=== PATIENT | female | born 1995 | race Caucasian/White ===

== ENCOUNTER 2022-12-26 12:37 | Outpatient (REF) | payer OTHER, SELFPAY ==
[2022-12-26 14:01] LABS: MANUAL DIFF FLAG NO
[2022-12-26 14:12] LABS: Basophils Percent Auto 0.5 % (0-2); Eosinophils Absolute Auto 0.1 X10*3/uL (0.0-0.4); Eosinophils Percent Auto 1.4 % (0-4); Hematocrit 41.6 % (37.0-47.0); Hemoglobin 13.5 g/dl (12.0-16.0); Imm Gran Abs Auto 0.03 X10*3/uL (0.00-0.03); Imm Gran Pct Auto 0.5 % (0.0-0.4); Lymphocytes Absolute Auto 2.1 X10*3/uL (1.2-4.9); Lymphocytes Percent Auto 31.5 % (20-40); Mean Corpuscular HGB Conc 32.5 g/dl (31.0-35.0); Mean Corpuscular Hemoglobin 28.5 pg (27.0-33.0); Mean Corpuscular Volume 87.9 fL (80.0-98.0); Mean Platelet Volume 9.8 fL (9.4-12.3); Monocytes Absolute Auto 0.4 X10*3/uL (0.1-1.2); Monocytes Percent Auto 5.7 % (2-11); Neutrophils Absolute Auto 3.9 x10*3/uL (2.0-8.3); Neutrophils Percent Auto 60.4 % (45-73); Platelet Count 318 X10*3/uL (160-400); Red Blood Count 4.73 X10*6/uL (4.20-5.50); Red Cell Distribution Width 12.1 % (11.0-16.0); White Blood Count 6.5 X10*3/uL (4.8-10.8)
[2022-12-26 14:19] LABS: Appearance Urine Clear; Color Urine Yellow; Glucose Urine UA Negative (Negative); Leukocyte Esterase Urine Trace (Negative); Nitrite Urine Negative (Negative); PH 5.5 (5.0-9.0); Specific Gravity - Urine >= 1.030 (1.005-1.025); UMIC TRIGGER UACC YES; Urine Blood Negative (Negative); Urine Ketones Trace mg/dL (Negative); Urine Protein Negative (Neg-Trace)
[2022-12-26 14:23] LABS: Bacteria Urine 1+ (None Seen); Hyaline Casts Urine 0-2 /LPF (0-2); RBC Urine 0-2 /HPF (0-2); WBC Urine 0-5 /HPF (0-5)
[2022-12-26 14:41] LABS: Alanine Aminotransferase 8 U/L (0-31); Albumin Level 3.9 g/dL (3.5-5.0); Alkaline Phosphatase 70 U/L (39-117); Anion Gap 12 (12-20); Aspartate Amino Transferase 13 U/L (5-31); Bilirubin Total 0.2 mg/dL (0.0-1.0); Blood Urea Nitrogen 13 mg/dL (9-16); Calcium 9.8 mg/dL (8.4-10.2); Carbon Dioxide 22 mmol/L (22-29); Chloride 110 mmol/L (96-108); Cholesterol 217 mg/dL; Estimated Glomerular Filt Rate > 60; Glucose Fasting 88 mg/dL (60-99); HDL Cholesterol 51 mg/dL; LDL Cholesterol Calculated 151 mg/dl; Potassium 4.4 mmol/L (3.3-5.1); Sodium 140 mmol/L (135-145); Triglycerides 77 mg/dL
[2022-12-26 14:46] LABS: TSH reflex Free T4 0.93 uIU/mL (0.32-4.0)
== END 2022-12-26 12:38 | disposition home or self-care (01) ==
LOC: HO.WFDLDS 12:37
PROVIDERS: Visit Provider Nurse Practitioner Family
DX: Z00.00 Encounter for general adult medical examination without abnormal findings (principal); R53.83 Other fatigue
CPT/HCPCS: 36415; 80053; 80061; 81001; 84443; 85025

== ENCOUNTER 2023-08-21 15:17 | Outpatient (AMB) | payer OTHER, SELFPAY ==
--- NOTE | 2023-08-21 15:23 | A.OFFPC_ITS ---
Vital Signs 08/21/23 15:24 Height 4 ft 10 in Weight 167 lb BMI 34.9 BP 116/84 Blood Pressure Location Rt brachial Position Sitting Respiration 13 Pulse 86 Pulse Source Pulse Oximeter Temp 97.5 F Temp Source Temporal Artery Scan Pulse Oximetry (%) 99 Oxygen Delivery Method Room Air Intake Visit Reasons: Medication review Composition Professor Required: No Accompanied by: Mother Allergies doxycycline Allergy (Severe, Verified 08/21/23 15:46) Rash oxycodone [From OxyContin] Allergy (Severe, Verified 08/21/23 15:46) Fainting Medication List - Last Reconciled 08/21/23 by Agustina Guzman, SHAKEEL norethindrone-e.estradiol-iron 1.5 mg-30 mcg (21)/75 mg (7) (Nancy Fe 1.5/30 (28)) 1 tab PO DAILY sertraline 100 mg PO DAILY 30 days Tobacco use date assessed: 08/21/23 Dental Screening Dental Screen Date: 08/21/23 Did you have a dental visit in the last 12 months?: No Did you have a dental problem in the last 6 months where you did not have access to dental care?: No Was dental information given to patient?: Patient has dentist HPI HPI Comments History of Present Illness Details 28-year-old female, accompanied by her m other, presents for anxiety and depression follow-up Her last office visit was in November 2022 She admits to taking her medications as prescribed without adverse reactions She reports increased anxiety symptoms and on/off depression symptoms. She reports weekly psychotherapy over the phone Reports feeling tired all the time and weight gain. She reports history of c hronic fatigue. She has gained 14 lb since her last visit. She admits to making dietary changes and walking her dog daily. She reports eating disorder; she would eat large meals, and became hungry very quickly. She did not follow up to schedule an appointment to establish with a human resource analyst. She notes that no human resource analyst will fix my eating problem. Everyone in my family is fat to may be i'm destined to be fat. [facility] Medical History PTSD (post-traumatic stress disorder) Depression Anxiety GERD (gastroesophageal reflux disease) Sinusitis Asthma Surgical History Hx of wisdom tooth extraction Family History Mother Psychiatric problem High cholesterol Father Psychiatric problem Maternal Grandfather Psychiatric problem High cholesterol Colon cancer Maternal Grandmother Psychiatric problem Paternal Grandfather Psychiatric problem Paternal Grandmother Psychiatric problem Sister Psychiatric problem High cholesterol Brother Psychiatric problem High cholesterol Social History Housing: House Alcohol intake: never Patient Tobacco Use Status: Never used Tobacco e-Cigarette/Vaping Use: Never Used Second Hand Smoke Exposure: No service: No Current occupational status: disabled (applied for disability for PTSD) Current occupational exposures/hazards: No Cognitive needs: No Hearing needs: No Vision needs: No Questionnaire PHQ-9 Over the last 2 weeks, how often have you been bothered by any of the following problems? 1. Little interest or pleasure in doing things: several days 2. Feeling down, depressed, or hopeless: several days 3. Trouble falling or staying asleep, or sleeping too much: nearly every day 4. Feeling tired or having little energy: nearly every day 5. Poor appetite or overeating: nearly every day 6. Feeling bad about yourself - or that you are a failure or have let yourself or your family down: several days 7. Trouble concentrating on things, such as reading the newspaper or watching television: nearly every day 8. Moving or speaking so slowly that other people could have noticed. Or the opposite - being so fidgety or restless that you have been moving around a lot more than usual: not at all 9. Thoughts that you would be better off or of hurting yourself in some way: not at all Total score: 15 Depression Screening Interpretation: Positive Depression Screening Follow-up: Existing condition and In treatment Depression Screening Done: Yes 18043 - PHQ-9 Billing: Yes Source: Developed by Drs. Holden Fernandez, Elsy Ugarte, Haresh Gomez and colleagues, with an educational johnny from [employer]. Thrive Questionnaire Date Thrive assessed: 11/19/22 LEONIDES-7 AMB Questionnaire LEONIDES-7 Date LEONIEDS - 7 assessed: 08/21/23 Feeling nervous, anxious, or on edge: 3 = Nearly every day Not being able to stop or control worryin = Nearly every day Worrying too much about different things: 3 = Nearly every day Trouble relaxin = Nearly every day Being so restless that it is hard to sit still: 1 = Several days Becoming easily annoyed or irritable: 3 = Nearly every day Feeling afraid as if something awful might happen: 3 = Nearly every day Total LEONIDES-7 score (0-4 normal; 5-9 mild; 10-14 moderate; 15-21 severe): 19 Source: Developed by Drs. Holden Fernandez, Elsy Ugarte, Haresh Gomez and colleagues, with an educational johnny from [employer]. LEONIDES-7 Assessment Billing LEONIDES-7 Assessment Tool: LEONIDES-7 Assessment 35381 Review of Systems Const Details: Const Denies chills, Denies fatigue, Denies fever(s), Denies headache(s) and Denies weakness ENT Denies dizziness and Denies headache(s) Card Denies chest pain, Denies lightheadedness, Denies dyspnea and Denies other (Palpitations) Resp Denies cough, Denies dyspnea, Denies wheezing and Denies other ( shortness of breath) GI Denies abdominal pain, Denies melena, Denies hematochezia, Denies change in bowel habits, Denies dyspepsia and Denies nausea Denies hematuria and Denies dysuria Musc Denies abnormal gait, Denies myalgias, Denies arthralgias, Denies numbness and Denies tingling Skin/Breast Denies rash, Denies unusual bruising and Denies wounds Neuro Denies abnormal gait, Denies dizziness, Denies headache(s), Denies memory loss, Denies numbness, Denies Sensory deficit (Neuro), Denies tingling and Denies weakness Psych Reports anxiety, Reports depression, Denies memory loss Endo Denies cold intolerance, Denies fatigue, Denies heat intolerance, Denies polydipsia and Denies polyuria Aller/Immun Denies wheezing Physical exam (Primary Care) Vital Signs: Last Vital Signs Temp 97.5 F 08/21/23 15:24 Pulse 86 08/21/23 15:24 Resp 13 08/21/23 15:24 BP 116/84 08/21/23 15:24 Pulse Ox 99 08/21/23 15:24 Oxygen Delivery Method Room Air 08/21/23 15:24 BMI result Body Mass Index 34.9 Tobacco/Smoking Status: Tobacco use Status Tobacco use date assessed 08/21/23 08/21/23 15:35 Patient Tobacco Use Status Never used Tobacco 08/21/23 15:30 e-Cigarette/Vaping Use Never Used 08/21/23 15:30 PHQ-9: PHQ-9 Score PHQ-9: Total score 15 08/21/23 15:35 Depression Screening Interpretation: Positive Depression Screening Follow-up: Existing condition and In treatment Thrive Assessment: Date of Thrive Assessment Date Thrive assessed 11/19/22 08/21/23 15:30 Const Other: General: no acute distress and well developed Nutritional Appearance: well nourished Orientation/consciousness: patient oriented x3 HENMT Head: Yes normocephalic and Yes atraumatic Eyes General: appearance normal, both eyes and all related structures Pupils: Equal, round and reactive pupils present EOM: EOMs intact bilaterally Resp Effort & Inspection: normal respiratory effort Auscultation: clear to auscultation bilaterally Cardio Rate: regular rate Rhythm: regular rhythm Heart sounds: S1 normal heart sound present, S2 normal heart sound present, no gallops, no murmurs and no rubs GI Palpation (GI): No Abdominal aortic bruit present, Soft to palpation, nontender, No hepatosplenomegaly present and No Rebound tenderness present Auscultation: normal bowel sounds General: Yes no CVA tenderness Back/Spine/Pelvis Back: no CVA tenderness Cervical Spine: cervical ROM normal and No Cervical spine tenderness Thoracic/Lumbar Spine: thoraco-lumbar ROM normal, No pain with thoraco-lumbar ROM, No thoracic spinal tenderness and No lumbar spinal tenderness Extrem General: Yes normal to inspection, No edema and No calf tenderness Skin General: warm and dry. Normal skin color. Normal skin turgor Neuro General: patient oriented x3, gait normal and no focal neuro deficit Cranial nerves: Yes Equal, round and reactive pupils present Cognition (Neuro): normal cognition Gait exam (Neuro): Normal gait present Sensory Exam: No Sensory deficit (Neuro) Psych Appearance: grossly normal Affect: normal affect Attitude: cooperative Thought process: Normal thought process present Assessment and Plan Assessment & Plan (1) Anxiety: Code(s): F41.9 - Anxiety disorder, unspecified Plan: Reports increased anxiety symptoms and on and off depression symptoms PHQ-9 and LEONIDES-7 scores revealed moderately severe depression and severe anxiety respectively Buspirone ordered. Take as prescribed Continue to take sertraline as prescribed Routine exercise encouraged Follow-up in 2 weeks or return sooner with worsening or new symptoms Verbalized understanding and agreed with treatment plan (2) Depression: Code(s): F32.A - Depression, unspecified Plan: As above (3) Fatigue: Code(s): R53.83 - Other fatigue Plan: Reports chronic fatigue and weight loss. She gained 14 lb since her last visit on November 2022 She currently weighs 167 lb, BMI is 34.9 Healthy diet and routine exercise encouraged Will check CBC, CMP, TSH/T4, and make changes as needed Encouraged to follow-up with human resource analyst Return with worsening or new symptoms Verbalized understanding and agreed with treatment plan (4) Obesity (BMI 30-39.9): Code(s): E66.9 - Obesity, unspecified Plan: As above Orders: Orders Comprehensive [place]. Panel Fast Today R53.83 - Other fatigue TSH reflex Free T4 Today E66.9 - Obesity, unspecified Complete Blood Count no Diff Today R53.83 - Other fatigue Medications: New buspirone 7.5 mg PO BID 30 days 60 tabs 3RF Coding Level of Care Code Est Pt Level 4 (01788) Diagnoses Anxiety F41.9 Depression F32.A Fatigue R53.83 Obesity (BMI 30-39.9) E66.9 Additional Codes LEONIDES-7 Assessment Billing - LEONIDES-7 Assessment Tool: LEONIDES-7 Assessment [id number] ([id number])
[2023-08-21 15:24] VITALS: BP 116/84; PULSE 86; RESP 13; TEMP 36.4; O2SAT 99; BMI 34.9
== END 2023-08-21 16:10 | disposition home or self-care (01) ==
PROVIDERS: PCP Nurse Practitioner Family; Visit Provider Nurse Practitioner Family
DX: F41.9 Anxiety disorder, unspecified (principal); E66.9 Obesity, unspecified; Z68.34 Body mass index [BMI] 34.0-34.9, adult; F32.A Depression, unspecified; R53.83 Other fatigue
CPT/HCPCS: 99214

== ENCOUNTER 2024-08-31 10:15 | Outpatient (AMB) | payer OTHER, SELFPAY ==
--- NOTE | 2024-08-31 10:19 | MHC.PC.OV ---
Vital Signs 08/31/24 10:28 Height 4 ft 10 in Weight 171 lb BMI 35.7 BP 128/70 Blood Pressure Location Lt brachial Position Sitting Respiration 16 Pulse 79 Pulse Source Pulse Oximeter Temp 98.1 F Temp Source Oral Pulse Oximetry (%) 97 Oxygen Delivery Method Room Air Intake Visit Reasons: Annual PE Intake Note: patient here for CPE [employer] Director Required: No Is last menstrual period known: No Post menopausal: No Patient : No Allergies doxycycline Allergy (Severe, Verified 08/31/24 10:33) Rash oxycodone [From OxyContin] Allergy (Severe, Verified 08/31/24 10:33) Fainting Medication List - Last Reconciled 08/31/24 by Agustina Guzman CNP bupropion HCl SR 150 mg PO BID buspirone 7.5 mg PO BID 30 days lamotrigine mg PO DAILY norethindrone-e.estradiol-iron 1.5 mg-30 mcg (21)/75 mg (7) (Nancy Fe 1.5/30 (28)) 1 tab PO DAILY prazosin mg PO BEDTIME sertraline 150 mg PO DAILY Tobacco use date assessed: 08/31/24 Dental Screening Dental Screen Date: 08/31/24 Did you have a dental visit in the last 12 months?: No Did you have a dental problem in the last 6 months where you did not have access to dental care?: No Was dental information given to patient?: Patient has dentist HPI HPI Comments History of Present Illness Details 29-year-old female, accompanied by her mother, presents for an extended physical exam. Acute issue(s) - Anxiety, PTSD, bipolar 1 disorder: She is on bupropion 150 mg BID, Buspirone 7.5 BID, Lamotrigine 25mg daily,, Sertraline 150 mg daily, Prazosin 1 mg at bedtime, She notes that her anxiety and depressive are not well controlled. She is followed by a therapist weekly and psychiatrist via telehalth every 2 weeks. - Gained 50 lb in the past 1 year Past Medical History - Anxiety, PTSD, OCD, bipolar 1 disorder, eating disorder Social History - Nonsmoker. Does not vape. Does not drink alcohol. Denies recreational drug use - Has been making healthy dietary choices. Exercises routinely. She has difficulty maintaining sleep; she sleeps an average of 2 hours nightly and relates her lack of sleep to bad dreams and being woken up by her dog. She snores but has never had a sleep study or diagnosed with sleep apnea Health maintenance - Last eye exam was 3 years ago. Referred to Ophthalmology for routine eye exam - Last dental visit was 13 years ago. She has a dental appointment tomorrow - Last Tdap was on 10/15/2016 - Has not been vaccinated for the flu this season; declines vaccination - Last pap smear test was with [facility] 2 years ago: normal. She has a follow up appointment for OCP [facility] Medical History PTSD (post-traumatic stress disorder) Depression Anxiety GERD (gastroesophageal reflux disease) Sinusitis Asthma Surgical History Hx of wisdom tooth extraction Family History Mother Psychiatric problem High cholesterol Father Psychiatric problem Maternal Grandfather Psychiatric problem High cholesterol Colon cancer Maternal Grandmother Psychiatric problem Paternal Grandfather Psychiatric problem Paternal Grandmother Psychiatric problem Sister Psychiatric problem High cholesterol Brother Psychiatric problem High cholesterol Social History Housing: House Alcohol intake: never Patient Tobacco Use Status: Never used Tobacco e-Cigarette/Vaping Use: Never Used Second Hand Smoke Exposure: No service: No Current occupational status: disabled Current occupational exposures/hazards: No Cognitive needs: No Hearing needs: No Vision needs: No Questionnaire PHQ-9 Over the last 2 weeks, how often have you been bothered by any of the following problems? 1. Little interest or pleasure in doing things: more than half the days 2. Feeling down, depressed, or hopeless: more than half the days 3. Trouble falling or staying asleep, or sleeping too much: nearly every day 4. Feeling tired or having little energy: nearly every day 5. Poor appetite or overeating: nearly every day 6. Feeling bad about yourself - or that you are a failure or have let yourself or your family down: more than half the days 7. Trouble concentrating on things, such as reading the newspaper or watching television: more than half the days 8. Moving or speaking so slowly that other people could have noticed. Or the opposite - being so fidgety or restless that you have been moving around a lot more than usual: several days 9. Thoughts that you would be better off or of hurting yourself in some way: not at all Total score: 18 Depression Screening Interpretation: Positive Depression Screening Follow-up: Existing condition and In treatment Depression Screening Done: Yes 61636 - PHQ-9 Billing: Yes Source: Developed by Drs. Holden Fernandez, Elsy Ugarte, Haresh Gomez and colleagues, with an educational johnny from [employer]. Thrive Questionnaire Date Thrive assessed: 08/31/24 I am a: Patient What is your living situation today?: I have a steady place to live Within the past 12 months, did the food you bought not last and you didn't have the money to get more?: Never true Within the past 12 months, did you worry whether your food would run out before you got money to buy more?: Never true Do you have trouble paying for medicines?: No Do you have trouble getting transportation to medical appointments?: No Do you have trouble paying your heating and electricity bill?: No Do you have trouble taking care of your child, family member or friend?: No Do you have trouble with day-to-day activities such as bathing, preparing meals, shopping, managing finances, etc.?: No Are you currently unemployed and looking for a job?: No Are you interested in more education?: No Please select the resources that you would like help with: None Currently or been in a relationship where the following occur: No concerns reported THRIVE Score: 0 AUDIT C Alcohol Use Questionnaire (AUDIT-C) 1. How often do you have a drink containing alcohol?: Never Total Score: 0 LEONIDES-7 AMB Questionnaire LEONIDES-7 Date LEONIDES - 7 assessed: 08/31/24 Feeling nervous, anxious, or on edge: 3 = Nearly every day Not being able to stop or control worryin = Nearly every day Worrying too much about different things: 3 = Nearly every day Trouble relaxin = Nearly every day Being so restless that it is hard to sit still: 1 = Several days Becoming easily annoyed or irritable: 3 = Nearly every day Feeling afraid as if something awful might happen: 2 = More than half the days Total LEONIDES-7 score (0-4 normal; 5-9 mild; 10-14 moderate; 15-21 severe): 18 Source: Developed by Drs. Holden Fernandez, Elsy Ugarte, Haresh Gomez and colleagues, with an educational johnny from [employer]. LEONIDES-7 Assessment Billing LEONIDES-7 Assessment Tool: LEONIDES-7 Assessment 69547 Review of Systems Const Details: Denies chills, Denies fatigue, Denies fever(s), Denies headache(s) and Denies weakness HEENT Denies change in vision, Denies dizziness, Denies headache(s), Denies hearing loss, Denies nasal congestion, Denies sinus pain, Denies sinus pressure and Denies sore throat Card Denies chest pain, Denies lightheadedness, Denies dyspnea and Denies other (palpitations) Resp Denies cough, Denies dyspnea and Denies wheezing GI Denies abdominal pain, Denies melena, Denies hematochezia, Denies change in bowel habits, Denies dyspepsia and Denies nausea Denies hematuria and Denies dysuria Musc Denies abnormal gait, Denies myalgias, Denies arthralgias, Denies numbness and Denies tingling Skin/Breast Denies rash, Denies unusual bruising and Denies wounds Neuro Denies abnormal gait, Denies dizziness, Denies headache(s), Denies memory loss, Denies numbness, Denies Sensory deficit (Neuro), Denies tingling and Denies weakness Psych Reports anxiety, Reports depression and Denies memory loss Endo Denies cold intolerance, Denies fatigue, Denies heat intolerance, Denies polydipsia and Denies polyuria Pratik/Lymph Denies easy bleeding and Denies easy bruising Aller/Immun Denies wheezing Physical exam (Primary Care) Vital Signs: Last Vital Signs Temp 98.1 F 08/31/24 10:28 Pulse 79 08/31/24 10:28 Resp 16 08/31/24 10:28 BP 128/70 08/31/24 10:28 Pulse Ox 97 08/31/24 10:28 Oxygen Delivery Method Room Air 08/31/24 10:28 BMI result Body Mass Index 35.7 Tobacco/Smoking Status: Tobacco use Status Tobacco use date assessed 08/31/24 08/31/24 10:31 Patient Tobacco Use Status Never used Tobacco 08/31/24 10:24 e-Cigarette/Vaping Use Never Used 08/31/24 10:24 PHQ-9: PHQ-9 Score PHQ-9: Total score 18 08/31/24 10:41 Depression Screening Interpretation: Positive Depression Screening Follow-up: Existing condition and In treatment Thrive Assessment: Date of Thrive Assessment Date Thrive assessed 08/31/24 08/31/24 10:24 Currently or been in a relationship where the following occur: No concerns reported Const Other: General: no acute distress, well developed, alert and awake Nutritional Appearance: well nourished Orientation/consciousness: patient oriented x3 HENMT Head: Yes normocephalic and Yes atraumatic Ears: hearing grossly normal bilaterally and TM's normal bilaterally General nose exam: Normal external nose present and Normal nares present Mouth: Normal oral and palatal mucosa present and moist mucous membranes Teeth and gingiva: dentition normal Throat: Yes oropharynx normal Eyes Pupils: Equal, round and reactive pupils present and Pupil accommodation reflex normal EOM: EOMs intact bilaterally Neck Neck: Yes normal visual inspection, Yes no lymphadenopathy and Yes trachea midline Thyroid: Thyroid normal Carotids: no bruits Lymphatic: no lymphadenopathy noted Chest Chest palpation & inspection: normal inspection of the chest Resp Effort & Inspection: normal respiratory effort Auscultation: clear to auscultation bilaterally Cardio Rate: regular rate Rhythm: regular rhythm Heart sounds: S1 normal heart sound present, S2 normal heart sound present, no gallops, no murmurs and no rubs Bruits: no abdominal aortic bruits and no carotid bruits GI Palpation (GI): No Abdominal aortic bruit present, Soft to palpation, nontender, No hepatosplenomegaly present and No Rebound tenderness present Auscultation: normal bowel sounds General: Yes no CVA tenderness Back/Spine/Pelvis Back: no CVA tenderness Cervical Spine: cervical ROM normal and No Cervical spine tenderness Thoracic/Lumbar Spine: thoraco-lumbar ROM normal, No pain with thoraco-lumbar ROM, No thoracic spinal tenderness and No lumbar spinal tenderness Skin General: warm and dry. Normal skin color. Normal skin turgor Lesions: no lesions Rashes: no rashes Trauma: no lacerations or abrasions Wounds: no wounds Nails: normal Neuro General: patient oriented x3, gait normal and CN's II-XI intact bilaterally Cranial nerves: Yes Equal, round and reactive pupils present Cognition (Neuro): normal cognition Gait exam (Neuro): Normal gait present Motor exam (neuro): 5/5 motor strength present throughout Sensory Exam: No Sensory deficit (Neuro) Deep tendon reflexes (DTR's): Right patellar reflex intensity grade: 2+ and Left patellar reflex intensity grade: 2+ Extrem General: Yes normal to inspection, No edema and No calf tenderness Psych Appearance: grossly normal Affect: normal affect Attitude: cooperative Thought process: Normal thought process present Coding Level of Care Code Est Pt Level 4 (32978) Est Pt Prev Care 18-39y(00531) Diagnoses Normal physical examination, routine Z00.00 Bipolar 1 disorder F31.9 Anxiety F41.9 PTSD (post-traumatic stress disorder) F43.10 Obesity (BMI 30-39.9) E66.9 Snoring R06.83 Insomnia G47.00 Eye exam, routine Z01.00 Laboratory tests ordered as part of a complete physical exam (CPE) Z00.00 Additional Codes LEONIDES-7 Assessment Billing - LEONIDES-7 Assessment Tool: LEONIDES-7 Assessment 27263 ([id number]) PHQ-9 - 25917 - PHQ-9 Billing: Yes ([id number]) Assessment & Plan Assessment & Plan (1) Normal physical examination, routine: Code(s): Z00.00 - Encounter for general adult medical examination without abnormal findings Category: Medical Plan: No significant functional limitations noted. Advised to perform lab work and follow-up for a telehealth visit in 2-3 weeks for labs review. Return sooner with symptoms or concerns. Verbalized understanding and agreed with treatment plan. (2) Bipolar 1 disorder: Code(s): F31.9 - Bipolar disorder, unspecified Category: Medical Plan: Anxiety and depressive symptoms and not controlled. PHQ-9 and LEONIDES-7 scores revealed moderately severe depression and severe anxiety respectively. Continue current treatment regimen. Routine exercise encouraged. Continue follow-up with psychiatrist and therapist as planned. Verbalized understanding and agreed with treatment plan. (3) Anxiety: Code(s): F41.9 - Anxiety disorder, unspecified Category: Medical Plan: Plan as above. (4) PTSD (post-traumatic stress disorder): Code(s): F43.10 - Post-traumatic stress disorder, unspecified Category: Medical Plan: Plan as above. (5) Obesity (BMI 30-39.9): Code(s): E66.9 - Obesity, unspecified Category: Medical Plan: She currently weighs 171 lb, BMI is 35.7. She gained 50 lb in the past year. Weight gain may be related to her eating disorder. Healthy diet and routine exercise encouraged. Referred to weight management clinic as requested. Follow-up as needed. Verbalized understanding and agreed with treatment plan. (6) Snoring: Code(s): R06.83 - Snoring Category: Medical Plan: She has difficulty maintaining sleep and sleeps an average of 2 hours nightly. She and relates her lack of sleep to bad dreams and being woken up by her dog. She snores but has never had a sleep study or diagnosed with sleep apnea. Insomnia may be related to sleep apnea or vicente. Instructed on sleep hygiene. Referred to [facility] sleep medicine for sleep study. Continue current psychotropic medications. Continue follow-up with therapist and psychiatrist as planned. Follow-up as needed. Verbalized understanding and agreed with treatment plan. (7) Insomnia: Code(s): G47.00 - Insomnia, unspecified Category: Medical Plan: Plan as above. (8) Eye exam, routine: Code(s): Z01.00 - Encounter for examination of eyes and vision without abnormal findings Category: Medical Plan: Last eye exam was 3 years ago. Referred to Ophthalmology for routine eye exam. (9) Laboratory tests ordered as part of a complete physical exam (CPE): Code(s): Z00.00 - Encounter for general adult medical examination without abnormal findings Category: Medical Plan: Fasting labs ordered as part of a complete physical exam. Advised to fast for at least 10 hours before getting labs drawn. May drink water Verbalized understanding and agreed with treatment plan. Orders: Orders Microalbumin, Random (w Creat) Today Z00.00 - Encounter for general adult medical examination without abnormal findings UA CC w/rflx Micro + Cult Today Z00.00 - Encounter for general adult medical examination without abnormal findings Vitamin D 25-OH Total Today Z00.00 - Encounter for general adult medical examination without abnormal findings Complete Blood Count Auto Diff Today Z00.00 - Encounter for general adult medical examination without abnormal findings Comprehensive [place]. Panel Fast Today Z00.00 - Encounter for general adult medical examination without abnormal findings Lipid Panel Today Z00.00 - Encounter for general adult medical examination without abnormal findings TSH reflex Free T4 Today Z00.00 - Encounter for general adult medical examination without abnormal findings Referrals Sleep Medicine Referral G47.00 - Insomnia, unspecified, R06.83 - Snoring Ophthalmology Referral Z01.00 - Encounter for examination of eyes and vision without abnormal findings Medical Weight Management Referral E66.9 - Obesity, unspecified
[2024-08-31 10:28] VITALS: BP 128/70; PULSE 79; RESP 16; TEMP 36.7; O2SAT 97; BMI 35.7
== END 2024-08-31 10:58 | disposition home or self-care (01) ==
PROVIDERS: PCP Nurse Practitioner Family; Visit Provider Nurse Practitioner Family
DX: Z00.00 Encounter for general adult medical examination without abnormal findings (principal); R06.83 Snoring; G47.00 Insomnia, unspecified; F31.9 Bipolar disorder, unspecified; Z68.35 Body mass index [BMI] 35.0-35.9, adult; E66.9 Obesity, unspecified; F41.9 Anxiety disorder, unspecified; F43.10 Post-traumatic stress disorder, unspecified

== ENCOUNTER → 2024-08-31 10:15 | Outpatient (BNVA) | payer OTHER, SELFPAY | PROVIDERS: PCP Nurse Practitioner Family; Visit Provider Nurse Practitioner Family | DX: Z00.00 Encounter for general adult medical examination without abnormal findings (principal); F31.9 Bipolar disorder, unspecified; F41.9 Anxiety disorder, unspecified; F43.10 Post-traumatic stress disorder, unspecified; E66.9 Obesity, unspecified; Z68.35 Body mass index [BMI] 35.0-35.9, adult; R06.83 Snoring; G47.00 Insomnia, unspecified; Z71.3 Dietary counseling and surveillance | CPT/HCPCS: 96127; 99212; 99395 ==

== ENCOUNTER 2024-09-30 09:28 | Outpatient (REF) | payer OTHER, SELFPAY ==
[2024-09-30 11:08] LABS: Appearance Urine Cloudy; Color Urine Dark Yellow; Glucose Urine UA Negative (Negative); Leukocyte Esterase Urine Negative (Negative); Nitrite Urine Negative (Negative); PH 8.5 (5.0-9.0); Specific Gravity - Urine >= 1.030 (1.005-1.025); UMIC TRIGGER UACC YES; Urine Blood Negative (Negative); Urine Ketones Trace mg/dL (Negative); Urine Protein 30 (1+) mg/dL (Neg-Trace)
[2024-09-30 11:12] LABS: MANUAL DIFF FLAG NO
[2024-09-30 11:29] LABS: Bacteria Urine Trace (None Seen); Hyaline Casts Urine 0-2 /LPF (0-2); RBC Urine 0-2 /HPF (0-2); WBC Urine 0-5 /HPF (0-5)
[2024-09-30 11:34] LABS: Basophils Percent Auto 0.3 % (0-2); Eosinophils Absolute Auto 0.2 X10*3/uL (0.0-0.4); Eosinophils Percent Auto 2.3 % (0-4); Hematocrit 41.7 % (37.0-47.0); Hemoglobin 13.6 g/dl (12.0-16.0); Imm Gran Abs Auto 0.04 X10*3/uL (0.00-0.03); Imm Gran Pct Auto 0.4 % (0.0-0.4); Lymphocytes Absolute Auto 2.7 X10*3/uL (1.2-4.9); Lymphocytes Percent Auto 29.5 % (20-40); Mean Corpuscular HGB Conc 32.6 g/dl (31.0-35.0); Mean Corpuscular Hemoglobin 28.3 pg (27.0-33.0); Mean Corpuscular Volume 86.9 fL (80.0-98.0); Mean Platelet Volume 9.4 fL (9.4-12.3); Monocytes Absolute Auto 0.5 X10*3/uL (0.1-1.2); Monocytes Percent Auto 5.3 % (2-11); Neutrophils Absolute Auto 5.7 x10*3/uL (2.0-8.3); Neutrophils Percent Auto 62.2 % (45-73); Platelet Count 333 X10*3/uL (160-400); Red Cell Distribution Width 12.8 % (11.0-16.0); White Blood Count 9.2 X10*3/uL (4.8-10.8)
[2024-09-30 11:56] LABS: Creatinine Urine 237.06 mg/dL; Microalbum/Creatinine Ratio Ur 10.5 ug/mg cr (<30)
[2024-09-30 12:56] LABS: Alanine Aminotransferase 15 U/L (0-31); Alkaline Phosphatase 64 U/L (39-117); Anion Gap 11 (12-20); Aspartate Amino Transferase 15 U/L (5-31); Bilirubin Total 0.2 mg/dL (0.0-1.0); Blood Urea Nitrogen 11 mg/dL (9-16); Calcium 9.5 mg/dL (8.4-10.2); Carbon Dioxide 23 mmol/L (22-29); Chloride 110 mmol/L (96-108); Cholesterol 182 mg/dL (<200); Estimated Glomerular Filt Rate > 60; Glucose Fasting 83 mg/dL (60-99); HDL Cholesterol 55 mg/dL (>40); LDL Cholesterol Calculated 105 mg/dL (<100); Potassium 4.1 mmol/L (3.3-5.1); Sodium 140 mmol/L (135-145); TSH reflex Free T4 1.24 uIU/mL (0.32-4.0); Total Protein 6.9 g/dL (6.5-8.0); Triglycerides 110 mg/dL (<150); Vitamin D 25-OH Total 36.5 ng/mL (>30)
== END 2024-09-30 09:29 | disposition home or self-care (01) ==
LOC: HO.WFDLDS 09:28
PROVIDERS: Visit Provider Nurse Practitioner Family
DX: Z00.00 Encounter for general adult medical examination without abnormal findings (principal)
CPT/HCPCS: 36415; 80053; 80061; 81001; 82043; 82306; 82570; 84443; 85025

== ENCOUNTER → 2024-10-21 15:08 | Outpatient (AMB) | payer OTHER, SELFPAY ==
--- NOTE | 2024-10-21 14:58 | A.OFFPC_ITS ---
Intake Visit Reasons: 2-3 wks labs review, reschedule Intake Note: Shey presents in the office today for a review of her labs. Allergies doxycycline Allergy (Severe, Verified 10/21/24 15:01) Rash oxycodone [From OxyContin] Allergy (Severe, Verified 10/21/24 15:01) Fainting Tobacco use date assessed: 10/21/24 Dental Screening Dental Screen Date: 10/21/24 Did you have a dental visit in the last 12 months?: No Did you have a dental problem in the last 6 months where you did not have access to dental care?: No Was dental information given to patient?: Patient has dentist HPI HPI Comments History of Present Illness Details 29-year-old female presents for teleuc health visit for review of recent lab results. She admits to taking her medications as prescribed without adverse reactions. She offers no complaints and denies acute symptoms at this time. [facility] Medical History PTSD (post-traumatic stress disorder) Depression Anxiety GERD (gastroesophageal reflux disease) Sinusitis Asthma Surgical History Hx of wisdom tooth extraction Family History Mother Psychiatric problem High cholesterol Father Psychiatric problem Maternal Grandfather Psychiatric problem High cholesterol Colon cancer Maternal Grandmother Psychiatric problem Paternal Grandfather Psychiatric problem Paternal Grandmother Psychiatric problem Sister Psychiatric problem High cholesterol Brother Psychiatric problem High cholesterol Social History (Updated 10/21/24 @ 15:03 by Rosa Caldwell MA) Housing: House Alcohol intake: never Patient Tobacco Use Status: Never used Tobacco e-Cigarette/Vaping Use: Never Used Second Hand Smoke Exposure: No service: No Current occupational status: disabled Current occupational exposures/hazards: No Cognitive needs: No Hearing needs: No Vision needs: No Questionnaire Thrive Questionnaire Date Thrive assessed: 08/31/24 LEONIDES-7 AMB Questionnaire LEONIDES-7 Date LEONIDES - 7 assessed: 08/31/24 Source: Developed by Drs. Holden Fernandez, Elsy Ugarte, Haresh Gomez and colleagues, with an educational johnny from [employer]. ACT Questionnaire In the past 4 weeks, how much of the time did your asthma keep you from getting as much done at work, school or at home?: None of the time During the past 4 weeks, how often have you had shortness of breath?: Not at all During the past 4 weeks, how often did your asthma symptoms wake you up at night or earlier than usual in the morning?: Not at all During the past 4 weeks, how often have you had to use your rescue inhaler or nebulizer medication?: Not at all How would you rate your asthma control during the past 4 weeks?: Well controlled Score: 24 Review of Systems Const Details: Denies chills, Denies fatigue, Denies fever(s), Denies headache(s) and Denies weakness Cardiac Denies chest pain, Denies claudication, Denies leg edema, Denies lightheadedness, Denies palpitations, Denies dyspnea, Denies dyspnea on exertion, Denies orthopnea and Denies other (Loss of consciousness) Resp Denies cough, Denies excessive phlegm production, Denies dyspnea, Denies dyspnea on exertion, Denies snoring and Denies wheezing Physical exam (Primary Care) Tobacco/Smoking Status: Tobacco use Status Tobacco use date assessed 10/21/24 10/21/24 15:03 Patient Tobacco Use Status Never used Tobacco 10/21/24 15:03 e-Cigarette/Vaping Use Never Used 10/21/24 15:03 Thrive Assessment: Date of Thrive Assessment Date Thrive assessed 08/31/24 10/21/24 14:58 Telehealth Telehealth Telehealth Platform: Telephone Location of provider rendering services: practice address Location of patient: address on file Patient Identification confirmed using: Name, : Yes Telehealth method: voice only Patient verbally consented to treatment: Yes Patient verbally consented to billing insurance company: Yes Patient informed of any privacy concerns related to visit: Yes Coding Level of Care Code Tele Est Pt Level 3 (42307) Diagnoses Elevated LDL cholesterol level E78.00 Time Spent (min) 10 Assessment & Plan Assessment & Plan (1) Elevated LDL cholesterol level: Code(s): E78.00 - Pure hypercholesterolemia, unspecified Category: Medical Plan: Recent LDL level is slightly elevated, 105. Advised to limit foods high in saturated fat and avoid foods high in trans fat. Routine exercise encouraged. Will monitor lipid panel levels annually or with related symptoms or concerns. Follow-up with therapist and psychiatrist as planned. Schedule an extended physical exam in a year from her last. Return sooner with symptoms or concerns. Verbalized understanding and agreed with the plan.
== END ==
LOC: HO.HMCFM 15:08
PROVIDERS: PCP Nurse Practitioner Family; Visit Provider Nurse Practitioner Family
DX: E78.00 Pure hypercholesterolemia, unspecified (principal)

== ENCOUNTER → 2024-10-21 15:08 | Outpatient (BNVA) | payer OTHER, SELFPAY | PROVIDERS: PCP Nurse Practitioner Family; Visit Provider Nurse Practitioner Family ==

== ENCOUNTER 2024-12-06 14:44 | Outpatient (AMB) | payer OTHER, SELFPAY ==
--- NOTE | 2024-12-06 14:49 | MHC.PC.OV ---
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 Is last menstrual period known: No (she is on control) Post menopausal: No Patient : No Allergies doxycycline Allergy (Severe, Verified 12/06/24 15:01) Rash oxycodone [From OxyContin] Allergy (Severe, Verified 12/06/24 15:01) Fainting Medication List - Last Reconciled 12/06/24 by Agustina Guzman CNP bupropion HCl SR 150 mg PO BID buspirone 7.5 mg PO BID 30 days lamotrigine mg PO DAILY norethindrone-e.estradiol-iron 1.5 mg-30 mcg (21)/75 mg (7) (Nancy Fe 1.5/30 (28)) 1 tab PO DAILY prazosin mg PO BEDTIME sertraline 150 mg PO DAILY Tobacco use date assessed: 12/06/24 Dental Screening Dental Screen Date: 12/06/24 Did you have a dental visit in the last 12 months?: No Did you have a dental problem in the last 6 months where you did not have access to dental care?: No Was dental information given to patient?: Yes HPI HPI Comments History of Present Illness Details 29-year-old female presents with complaints of pressure in her suprapubic region, urinary frequency, dysuria. Her symptoms have been ongoing for the past 3-4 days; she has been getting up at night to urinate for at least 7 times. She also notes notes that she drank a lot of water in the fist two days at the onset of her symptoms. She has also been binge eating; she has eating disorder. She denies vaginal itching or discharge with urination. She has never been sexually active and has no concern for STDs. [facility] Medical History PTSD (post-traumatic stress disorder) Depression Anxiety GERD (gastroesophageal reflux disease) Sinusitis Asthma Surgical History Hx of wisdom tooth extraction Family History Mother Psychiatric problem High cholesterol Father Psychiatric problem Maternal Grandfather Psychiatric problem High cholesterol Colon cancer Maternal Grandmother Psychiatric problem Paternal Grandfather Psychiatric problem Paternal Grandmother Psychiatric problem Sister Psychiatric problem High cholesterol Brother Psychiatric problem High cholesterol Social History (Updated 10/21/24 @ 15:03 by Rosa Caldwell MA) Housing: House Alcohol intake: never Patient Tobacco Use Status: Never used Tobacco e-Cigarette/Vaping Use: Never Used Second Hand Smoke Exposure: No Patient : No service: No Current occupational status: disabled Current occupational exposures/hazards: No Cognitive needs: No Hearing needs: No Vision needs: No Questionnaire Thrive Questionnaire Date Thrive assessed: 08/31/24 I am a: Patient What is your living situation today?: I have a steady place to live Within the past 12 months, did the food you bought not last and you didn't have the money to get more?: Never true Within the past 12 months, did you worry whether your food would run out before you got money to buy more?: Never true Do you have trouble paying for medicines?: No Do you have trouble getting transportation to medical appointments?: No Do you have trouble paying your heating and electricity bill?: No Do you have trouble taking care of your child, family member or friend?: No Do you have trouble with day-to-day activities such as bathing, preparing meals, shopping, managing finances, etc.?: No Are you currently unemployed and looking for a job?: No Are you interested in more education?: No Please select the resources that you would like help with: None Currently or been in a relationship where the following occur: No concerns reported THRIVE Score: 0 LEONIDES-7 AMB Questionnaire LEONIDES-7 Date LEONIDES - 7 assessed: 08/31/24 Source: Developed by Drs. Holden Fernandez, Elsy Ugarte, Haresh Gomez and colleagues, with an educational jhonny from [employer]. Review of Systems Const Details: Const Denies chills, Denies fatigue, Denies fever(s), Denies headache(s) and Denies weakness ENT Denies dizziness and Denies headache(s) Card Denies chest pain, Denies lightheadedness, Denies dyspnea and Denies other (Palpitations) Resp Denies cough, Denies dyspnea, Denies wheezing and Denies other ( shortness of breath) GI Denies abdominal pain, Denies melena, Denies hematochezia, Denies change in bowel habits, Denies dyspepsia and Denies nausea Denies hematuria and Denies dysuria Musc Denies abnormal gait, Denies myalgias, Denies arthralgias, Denies numbness and Denies tingling Skin/Breast Denies rash, Denies unusual bruising and Denies wounds Neuro Denies abnormal gait, Denies dizziness, Denies headache(s), Denies memory loss, Denies numbness, Denies Sensory deficit (Neuro), Denies tingling and Denies weakness Psych Denies anxiety, Denies depression, Denies memory loss Endo Denies cold intolerance, Denies fatigue, Denies heat intolerance, Denies polydipsia and Denies polyuria Aller/Immun Denies wheezing Physical exam (Primary Care) Vital Signs: Last Vital Signs Temp 98.7 F 12/06/24 14:58 Pulse 86 12/06/24 14:58 Resp 16 12/06/24 14:58 BP 125/72 12/06/24 14:58 Pulse Ox 98 12/06/24 14:58 Oxygen Delivery Method Room Air 12/06/24 14:58 BMI result Body Mass Index 35.8 Tobacco/Smoking Status: Tobacco use Status Tobacco use date assessed 12/06/24 12/06/24 15:00 Patient Tobacco Use Status Never used Tobacco 12/06/24 14:52 e-Cigarette/Vaping Use Never Used 12/06/24 14:52 Thrive Assessment: Date of Thrive Assessment Date Thrive assessed 08/31/24 12/06/24 14:52 Currently or been in a relationship where the following occur: No concerns reported Const Other: General: no acute distress and well developed Nutritional Appearance: well nourished Orientation/consciousness: patient oriented x3 HENMT Head: Yes normocephalic and Yes atraumatic Eyes General: appearance normal, both eyes and all related structures Pupils: Equal, round and reactive pupils present EOM: EOMs intact bilaterally Resp Effort & Inspection: normal respiratory effort Auscultation: clear to auscultation bilaterally Cardio Rate: regular rate Rhythm: regular rhythm Heart sounds: S1 normal heart sound present, S2 normal heart sound present, no gallops, no murmurs and no rubs GI Palpation (GI): No Abdominal aortic bruit present, Soft to palpation, nontender, No hepatosplenomegaly present and No Rebound tenderness present Auscultation: normal bowel sounds General: Yes no CVA tenderness Back/Spine/Pelvis Back: no CVA tenderness Cervical Spine: cervical ROM normal and No Cervical spine tenderness Thoracic/Lumbar Spine: thoraco-lumbar ROM normal, No pain with thoraco-lumbar ROM, No thoracic spinal tenderness and No lumbar spinal tenderness Extrem General: Yes normal to inspection, No edema and No calf tenderness Skin General: warm and dry. Normal skin color. Normal skin turgor Neuro General: patient oriented x3, gait normal and no focal neuro deficit Cranial nerves: Yes Equal, round and reactive pupils present Cognition (Neuro): normal cognition Gait exam (Neuro): Normal gait present Sensory Exam: No Sensory deficit (Neuro) Psych Appearance: grossly normal Affect: normal affect Attitude: cooperative Thought process: Normal thought process present Coding Level of Care Code Est Pt Level 3 (68752) Diagnoses Lower urinary tract symptoms (LUTS) R39.9 Assessment & Plan Assessment & Plan (1) Lower urinary tract symptoms (LUTS): Code(s): R39.9 - Unspecified symptoms and signs involving the genitourinary system Category: Medical Plan: Urine dip is negative for UTI. A1c is 5.4%, No diabetes. Will send urine to the lab for urinalysis and culture. She wants to hold off on antibiotic treatment until urinalysis/culture resulted. Adequate hydration and healthy diet encouraged. Follow-up with worsening or new symptoms. Verbalized understanding and agreed with the treatment plan. Orders: Orders UA CC w/rflx Micro + Cult Today R39.9 - Unspecified symptoms and signs involving the genitourinary system Hemoglobin A1c Today R39.9 - Unspecified symptoms and signs involving the genitourinary system AMB Hemoglobin A1c Today Z13.9 - Encounter for screening, unspecified
[2024-12-06 14:58] VITALS: BP 125/72; PULSE 86; RESP 16; TEMP 37.1; O2SAT 98; BMI 35.8
--- OUTSIDE RECORDS SUMMARY | 2024-12-06 17:47 | XMS_ITS | Clinical Summary ---
Author Organization [address] [facility] Address [address] [place] [address] Phone Care Team Providers Care Senior Technical Specialist Name Role Phone Agustina Guzman MARCELO Primary Care Provider [phone] Social History Tobacco Use Types Packs/Day Years Used Date Smoking Tobacco: Never Assessed Comments Unknown Sex and Gender Information Value Date Recorded Sex Assigned at Not on file Legal Sex Female 12:16 PM EDT Gender Identity Not on file Sexual Orientation Not on file Plan of Treatment Upcoming Encounters Date Type Department Care Team ([facility] Contact Info) Description 12/07/2024 2:30 PM EDT Consult Bariatric Surgery [facility] [address] [address] Inocente Wilkerson MD [address] [address] Health Maintenance Due Date Last Done Comments DTaP,Tdap,and Td Vaccines (1 - Tdap) 2013 Hepatitis B Vaccines (1 of 3 - 19+ 3-dose series) 2013 Cervical Cancer Screening: P ap Smear 2015 COVID-19 Vaccine ( - 2023-2 5 season) 2024 Depression Screening 11/09/2024 HIV Screening 11/09/2024 Hepatitis C Screening 11/09/2024 Social Influencers of Health Screening 11/09/2024 Influenza Vaccine (Season Ended) 2025 HIB Vaccines Aged Out No longer eligi ble based on patient's age to complete this topic HPV Vaccines Aged Out No longer eligi ble based on patient's age to complete this topic Hepatitis A Vaccines Aged Out No long er eligible based on patient's age to complete this topic IPV Vaccines Aged Out No longer eligi ble based on patient's age to complete this topic MMR Vaccines Aged Out No longer eligi ble based on patient's age to complete this topic Meningococcal ACWY Vaccine Aged Out N o longer eligible based on patient's age to complete this topic Meningococcal B Vaccine Aged Out No l onger eligible based on patient's age to complete this topic Pneumococcal Vaccine: Pediat rics (0 to 5 Years) and At-Risk Patients (6 to 64 Years) Aged Out No longer eligible b ased on patient's age to complete this topic RSV Immunization Patients Un lucas 20 months Aged Out No longer eligible b ased on patient's age to complete this topic Varicella Vaccines Aged Out No longer eligible based on patient's age to complete this topic Insurance PLAN Care Teams Senior Technical Specialist Relationship Specialty Start Date End Date Agustina Guzman FNP [address] [place] [id number] PCP - General Family Medicine 11/09/24
== END 2024-12-06 15:32 | disposition home or self-care (01) ==
LOC: HO.HMCFM 14:45
PROVIDERS: PCP Nurse Practitioner Family; Visit Provider Nurse Practitioner Family
DX: Z13.9 Encounter for screening, unspecified (principal); R39.9 Unspecified symptoms and signs involving the genitourinary system

== ENCOUNTER 2024-12-06 14:44 | Outpatient (REF) | payer OTHER, SELFPAY ==
[2024-12-06 18:12] LABS: Appearance Urine Clear; Color Urine Yellow; Glucose Urine UA Negative (Negative); Leukocyte Esterase Urine Negative (Negative); Nitrite Urine Negative (Negative); PH 5.5 (5.0-9.0); Specific Gravity - Urine 1.025 (1.005-1.025); Urine Blood Negative (Negative); Urine Ketones Trace mg/dL (Negative); Urine Protein Negative (Neg-Trace)
== END 2024-12-06 14:45 | disposition home or self-care (01) ==
LOC: HO.LAB 14:44
PROVIDERS: PCP Nurse Practitioner Family; Visit Provider Nurse Practitioner Family
DX: R39.9 Unspecified symptoms and signs involving the genitourinary system (principal)
CPT/HCPCS: 81003; 83036; 99212